=== PATIENT | male | born 1955 | race Caucasian/White ===

== ENCOUNTER 2018-02-02 11:37 | Emergency (ER) | payer BC ==
[~2018-02-02] VITALS: Ht 170.2 cm; Wt 102.0 kg
[2018-02-02] MEDS ORDERED: TORS10 (12:11)
[2018-02-02] MEDS ORDERED: IRBE150 PO (12:11)
[2018-02-02] MEDS ORDERED: AMLO10 PO (12:11)
[2018-02-02 12:59] LABS: BASOPHILS ABSOLUTE AUTO 0.04 K/mm3 (0.00-0.23); BASOPHILS PERCENT AUTO 1 % (0-2); EOSINOPHILS ABSOLUTE AUTO 0.13 K/mm3 (0.00-0.68); EOSINOPHILS PERCENT AUTO 2 % (0-6); Hematocrit 46.4 % (37.0-53.0); Hemoglobin 15.8 g/dL (13.5-17.5); IMMATURE GRAN ABSOLUTE AUTO 0.02 K/mm3 (0.00-0.10); IMMATURE GRAN PERCENT AUTO 0 % (0-1); LYMPHOCYTES ABSOLUTE AUTO 1.57 K/mm3 (0.84-5.20); LYMPHOCYTES PERCENT AUTO 25 % (21-46); MONOCYTES ABSOLUTE AUTO 0.53 K/mm3 (0.16-1.47); MONOCYTES PERCENT AUTO 9 % (4-13); Mean Corpuscular HGB 31.4 pg (26.0-34.0); Mean Corpuscular HGB Conc 34.1 g/dL (31.5-36.5); Mean Corpuscular Volume 92 fL (80-100); Mean Platelet Volume 9.4 fL (9.1-12.4); NEUTROPHILS ABSOLUTE AUTO 3.89 K/mm3 (1.96-9.15); NEUTROPHILS PERCENT AUTO 63 % (41-73); Platelet Count 239 K/mm3 (150-400); RDW Coefficient Variation 12.2 % (11.7-14.2); RDW Standard Deviation 41.8 fL (35.1-46.3); Red Blood Cell Count 5.03 M/mm3 (4.30-5.90); White Blood Cell Count 6.18 K/mm3 (4.00-11.30)
[2018-02-02 13:19] LABS: Alanine Aminotransfer (ALT/SGP 33 U/L (12-78); Albumin, Blood 3.9 g/dL (3.4-5.0); Albumin/Globulin Ratio 1.1 (0.8-1.8); Alk Phos 81 U/L (50-136); Anion Gap 6 mmol/L (6-16); Aspartate Aminotrans (AST/SGOT 14 U/L (12-37); Bilirubin, Total 0.7 mg/dL (0.1-1.0); Blood Urea Nitrogen 10 mg/dL (8-24); Bun/Creatinine Ratio 10.7 (12.0-20.0); CO2, Blood 29 mmol/L (21-32); Calcium, Blood 8.5 mg/dL (8.5-10.1); Chloride, Blood 108 mmol/L (98-108); Creatinine, Blood 0.94 mg/dL (0.60-1.20); Ethanol (Alcohol), Blood, Med <3 mg/dL; Globulin, Blood 3.7 g/dL (2.2-4.0); Glomerular Filtration Rate >60 (60-); Glucose, Blood 109 mg/dL (70-99); Potassium, Blood 3.7 mmol/L (3.5-5.5); Sodium, Blood 143 mmol/L (136-145); Total Protein, Blood 7.6 g/dL (6.4-8.2)
[2018-02-02] MEDS ORDERED: Aspirin EC81 MG PO (17:09)
== END 2018-02-02 17:30 | disposition home or self-care (01) ==
LOC: ER 11:37
PROVIDERS: Emergency Medicine
DX: R51 Headache (principal); H02.402 Unspecified ptosis of left eyelid; H57.04 Mydriasis; H53.2 Diplopia; Z88.8 Allergy status to other drugs, medicaments and biological substances
CPT/HCPCS: 36415; 70498; 70553; 80053; 85025; 85651; 86140; 93005; 93010; 99284-25; A9577; G0480; Q9967

== ENCOUNTER 2018-02-04 13:15 | Emergency (ER) | payer BC ==
[~2018-02-04] VITALS: Ht 170.2 cm; Wt 99.8 kg
[~2018-02-04 13:15] MED LIST: AMLO10 PO; Aspirin EC81 MG PO; IRBE150 PO; TORS10
[2018-02-04 15:48] LABS: BASOPHILS ABSOLUTE AUTO 0.04 K/mm3 (0.00-0.23); BASOPHILS PERCENT AUTO 1 % (0-2); EOSINOPHILS ABSOLUTE AUTO 0.09 K/mm3 (0.00-0.68); EOSINOPHILS PERCENT AUTO 1 % (0-6); Hematocrit 45.8 % (37.0-53.0); Hemoglobin 15.2 g/dL (13.5-17.5); IMMATURE GRAN ABSOLUTE AUTO 0.03 K/mm3 (0.00-0.10); IMMATURE GRAN PERCENT AUTO 1 % (0-1); LYMPHOCYTES ABSOLUTE AUTO 1.51 K/mm3 (0.84-5.20); LYMPHOCYTES PERCENT AUTO 24 % (21-46); MONOCYTES ABSOLUTE AUTO 0.44 K/mm3 (0.16-1.47); MONOCYTES PERCENT AUTO 7 % (4-13); Mean Corpuscular HGB 31.1 pg (26.0-34.0); Mean Corpuscular HGB Conc 33.2 g/dL (31.5-36.5); Mean Corpuscular Volume 94 fL (80-100); Mean Platelet Volume 9.3 fL (9.1-12.4); NEUTROPHILS ABSOLUTE AUTO 4.26 K/mm3 (1.96-9.15); NEUTROPHILS PERCENT AUTO 67 % (41-73); Platelet Count 252 K/mm3 (150-400); RDW Coefficient Variation 12.3 % (11.7-14.2); RDW Standard Deviation 42.7 fL (35.1-46.3); Red Blood Cell Count 4.89 M/mm3 (4.30-5.90); White Blood Cell Count 6.37 K/mm3 (4.00-11.30)
[2018-02-04 15:56] LABS: Alanine Aminotransfer (ALT/SGP 29 U/L (12-78); Albumin, Blood 3.8 g/dL (3.4-5.0); Alk Phos 80 U/L (50-136); Anion Gap 6 mmol/L (6-16); Aspartate Aminotrans (AST/SGOT 19 U/L (12-37); Bilirubin, Total 0.5 mg/dL (0.1-1.0); Blood Urea Nitrogen 12 mg/dL (8-24); Bun/Creatinine Ratio 12.6 (12.0-20.0); CO2, Blood 29 mmol/L (21-32); Calcium, Blood 8.9 mg/dL (8.5-10.1); Chloride, Blood 108 mmol/L (98-108); Creatinine, Blood 0.95 mg/dL (0.60-1.20); Globulin, Blood 3.8 g/dL (2.2-4.0); Glomerular Filtration Rate >60 (60-); Glucose, Blood 101 mg/dL (70-99); Potassium, Blood 3.9 mmol/L (3.5-5.5); Sodium, Blood 143 mmol/L (136-145); Total Protein, Blood 7.6 g/dL (6.4-8.2)
== END 2018-02-04 18:58 | disposition home or self-care (01) ==
LOC: ER 13:15
PROVIDERS: Emergency Medicine
DX: H49.02 Third [oculomotor] nerve palsy, left eye (principal); I10 Essential (primary) hypertension; Z91.030 Bee allergy status; Z88.8 Allergy status to other drugs, medicaments and biological substances; Z79.899 Other long term (current) drug therapy; Z79.82 Long term (current) use of aspirin
CPT/HCPCS: 36415; 70496; 80053; 85025; 99284-25; Q9967

== ENCOUNTER 2023-06-26 09:49 | Day surgery (SDC) | payer OTHER ==
[~2023-06-26] VITALS: Ht 170.2 cm; Wt 103.2 kg
[~2023-06-26 09:49] MED LIST changes: +C COMPLEX1000 M1 PO; +CELE200 PO; +COLCHICINE0.6 MG PO; +CVS ALLERGY RL1 EAC1 PO; +ELEMENTAL ZINC30 MG PO; +EPIPEN0.3 MG/0.3 IM; +METO25ER PO; +MULTI-VITAMIN1 EAC2 PO; +Nitroglycerin1 EAC3 TD; +ROSU10TA PO; -TORS10; +TORS10 PO
[2023-06-26] MEDS ORDERED: TRELEGY ELLIPT1 EACH (10:12)
[2023-06-26] MEDS ORDERED: ALBU4CRA (10:12)
[2023-06-26 12:31] VITALS: BP 115/76
--- NOTE | 2023-06-26 12:32 | NUR ---
06/26/23 1232 Vee Dhaliwal IV DC'D, CATH INTACT. PT TOLERATED WELL. GAUZE/COBAN IN PLACE
== END 2023-06-26 12:32 | disposition home or self-care (01) ==
LOC: ORSCSDS 09:49
PROVIDERS: Internal Medicine Gastroenterology
PROC: 0DB58ZX Excision of Esophagus, Via Natural or Artificial Opening Endoscopic, Diagnostic (ICD-10-PCS; principal; 2023-06-26 11:15)
PROC: 0DBN8ZX Excision of Sigmoid Colon, Via Natural or Artificial Opening Endoscopic, Diagnostic (ICD-10-PCS; principal; 2023-06-26 11:15)
PROC: 0DBL8ZX Excision of Transverse Colon, Via Natural or Artificial Opening Endoscopic, Diagnostic (ICD-10-PCS; principal; 2023-06-26 11:15)
DX: K21.00 Gastro-esophageal reflux disease with esophagitis, without bleeding (principal); K63.5 Polyp of colon; D12.5 Benign neoplasm of sigmoid colon; K44.9 Diaphragmatic hernia without obstruction or gangrene; K57.30 Diverticulosis of large intestine without perforation or abscess without bleeding; K64.4 Residual hemorrhoidal skin tags; I10 Essential (primary) hypertension; E78.5 Hyperlipidemia, unspecified; J45.909 Unspecified asthma, uncomplicated; Z79.899 Other long term (current) drug therapy
CPT/HCPCS: 88305; J2704; J7120

== ENCOUNTER 2024-07-03 12:06 | Emergency (ER) | payer OTHER ==
[~2024-07-03] VITALS: Ht 170.2 cm; Wt 98.4 kg
[~2024-07-03 12:06] MED LIST changes: +ALBU4CRA; +TRELEGY ELLIPT1 EACH
[2024-07-03 13:49] LABS: BASOPHILS ABSOLUTE AUTO 0.05 K/mm3 (0.00-0.23); BASOPHILS PERCENT AUTO 1 % (0-2); EOSINOPHILS ABSOLUTE AUTO 0.02 K/mm3 (0.00-0.68); EOSINOPHILS PERCENT AUTO 0 % (0-6); Hematocrit 47.4 % (37.0-53.0); Hemoglobin 16.2 g/dL (13.5-17.5); IMMATURE GRAN ABSOLUTE AUTO 0.03 K/mm3 (0.00-0.10); IMMATURE GRAN PERCENT AUTO 0 % (0-1); LYMPHOCYTES ABSOLUTE AUTO 1.65 K/mm3 (0.84-5.20); LYMPHOCYTES PERCENT AUTO 17 % (21-46); MONOCYTES ABSOLUTE AUTO 0.62 K/mm3 (0.16-1.47); MONOCYTES PERCENT AUTO 7 % (4-13); Mean Corpuscular HGB 31.5 pg (26.0-34.0); Mean Corpuscular HGB Conc 34.2 g/dL (31.5-36.5); Mean Corpuscular Volume 92 fL (80-100); Mean Platelet Volume 9.3 fL (9.1-12.4); NEUTROPHILS PERCENT AUTO 75 % (41-73); Platelet Count 227 K/mm3 (150-400); RDW Coefficient Variation 12.3 % (11.7-14.2); RDW Standard Deviation 42.3 fL (35.1-46.3); Red Blood Cell Count 5.14 M/mm3 (4.30-5.90); White Blood Cell Count 9.47 K/mm3 (4.00-11.30)
[2024-07-03 14:13] LABS: Albumin, Blood 3.8 g/dL (3.4-5.0); Bilirubin, Total 1.5 mg/dL (0.1-1.0); Calcium, Blood 9.3 mg/dL (8.5-10.1); Globulin, Blood 3.8 g/dL (2.2-4.0); Potassium, Blood 3.8 mmol/L (3.5-5.5); Total Protein, Blood 7.6 g/dL (6.4-8.2)
[2024-07-03] MEDS ORDERED: NS 1,000 ML IV SCH (15:05)
[2024-07-03 16:26] LABS: Appearance, Urine Clear (Clear); Bilirubin, Urine Neg (Neg); Blood, Urine Neg (Neg); Color, Urine Yellow (P-Yellow); Glucose Qualitative, Urine Neg (Neg); Ketones, Urine 2+ (Neg); Leukocyte Esterase, Urine Neg (Neg); Nitrite, Urine Neg (Neg); Protein, Urine Neg (Neg); Specific Gravity, Urine 1.005 (1.003-1.022); Urobilinogen, Urine NORM (Normal)
[2024-07-03 18:10] VITALS: BP 159/86
== END 2024-07-03 18:11 | disposition home or self-care (01) ==
LOC: ER 12:06
PROVIDERS: Physician Assistant
DX: R10.31 Right lower quadrant pain (principal); I10 Essential (primary) hypertension; Z88.6 Allergy status to analgesic agent; Z91.030 Bee allergy status; Z79.82 Long term (current) use of aspirin; Z79.899 Other long term (current) drug therapy
CPT/HCPCS: 74177; 80053; 81003; 83605; 85025; 96360-59; 96361; 99284-25; J7030; Q9967

== ENCOUNTER 2025-03-03 06:29 | Day surgery (SDC) | payer OTHER ==
[~2025-03-03] VITALS: Ht 170.2 cm; Wt 95.3 kg
[~2025-03-03 06:29] MED LIST changes: +ALBU90OI INH; +CALCIUM CIT 311 EAC7 PO; +NITR.4SL SL; +POTASSIUM GLUCONATE PO; +SYMBICORT 160-4.6 GM; +VITAMIN A PO; +VITAMIN D3
[2025-03-03] MEDS ORDERED: NS 1,000 ML IV ONE ×2 (06:35→07:03)
[2025-03-03] MEDS ORDERED: Midazolam HCl 1MG / ML 2ML Vial ONE (07:02)
[2025-03-03] MEDS ORDERED: Flumazenil 0.1 MG / ML 5ML Vial ONE (07:02)
[2025-03-03] MEDS ORDERED: Naloxone HCl 0.4MG / ML 1ML Vial ONE (07:02)
[2025-03-03] MEDS ORDERED: FentaNYL Citrate 50 MCG/ML 2 ML Injection ONE (07:03)
[2025-03-03 09:45] VITALS: BP 134/90
[2025-03-03 10:00] VITALS: BP 123/97
[2025-03-03 10:15] VITALS: BP 123/98
[2025-03-03 10:18] VITALS: BP 140/80
[2025-03-03 10:30] VITALS: BP 114/82
--- NOTE | 2025-03-03 11:13 | NUR ---
PT AND VERBALIZED UNDERSTANDING OF WRITTEN AND VERBAL D/C INST. IV REMOVED. L FLANK DRSG CDI. NEG SWELLING OR BLEEDING. PT TAKEN OUT OF THE HRT CENTER VIA W/C.
== END 2025-03-03 23:00 | disposition home or self-care (01) ==
LOC: MHTC 06:29 → CT 07:00 → MHTC 23:00
DX: C64.2 Malignant neoplasm of left kidney, except renal pelvis (principal)
CPT/HCPCS: 77013; J2250; J2312; J3010; J7030; Q9967